=== PATIENT | female | born 1960 | race African-American/Black ===

== ENCOUNTER → 2020-03-31 | Outpatient (CLI) | payer MEDICAID ==
[~2020-03-31] MED LIST: ASPI-1497 MT; CARV25TA47 MT; ESCI10TA61 MT; FURO-151 MT; METO2.5T14 MT; POTA20TA82 MT; SACU1TAB MT
== END | disposition home or self-care (01) ==
LOC: EDSTATUS 08:26 → LAB 08:27
PROVIDERS: ATTEND Internal Medicine Clinical Cardiac Electrophysiology
DX: Z20.828 Contact with and (suspected) exposure to other viral communicable diseases (principal)
CPT/HCPCS: C9803; U0003

== ENCOUNTER 2020-04-09 16:39 | Emergency (ER) | payer MEDICAID ==
[~2020-04-09] VITALS: Ht 162.6 cm; Wt 100.0 kg
[2020-04-09 17:55] LABS: EOSINOPHILS % 3.6 % (0.0-5.0); HEMATOCRIT. 38.1 % (36.0-48.0); HEMOGLOBIN. 13.3 g/dL (12.0-16.0); LYMPHOCYTES % 39.6 % (20.0-50.0); MEAN CORPUSCULAR HEMOGLOBIN 31.7 pg (28.0-32.0); MEAN CORPUSCULAR VOLUME 90.9 fL (81.0-99.0); MEAN PLATELET VOLUME 9.1 fl (7.4-10.4); MONOCYTES % 9.2 % (2.0-8.0); NEUTROPHILS % 46.6 % (40.0-76.0); PLATELET 175 x1000/uL (130-400); RED BLOOD CELL COUNT 4.19 mill/uL (4.2-5.4); RED CELL DISTRIBUTION WIDTH 13.1 % (11.6-14.6)
[2020-04-09 18:03] LABS: CHLORIDE 105 mEq/L (98-107)
[2020-04-09 18:07] LABS: ETHANOL BLOOD < 10 mg/dL
[2020-04-09 18:12] LABS: T4 FREE 1.04 ng/dL (0.76-1.46)
[2020-04-09] MEDS ORDERED: MAGNESIUM 2 G PREMIX 50 ML IV ONE (20:15)
[2020-04-09 22:16] VITALS: BP 131/82
== END 2020-04-09 22:43 | disposition home or self-care (01) ==
LOC: ER 16:39
DX: R00.2 Palpitations (principal); I10 Essential (primary) hypertension; Z95.0 Presence of cardiac pacemaker; Z90.710 Acquired absence of both cervix and uterus; Z79.82 Long term (current) use of aspirin; Z79.899 Other long term (current) drug therapy
CPT/HCPCS: 36415; 71045; 80053; 80320; 83690; 83880; 84439; 84443; 84481; 84484; 85025; 93005; 96365; 96366; 99285; J3475; G0480